=== PATIENT | male | born 1965 | race Caucasian/White ===

== ENCOUNTER 2022-01-31 14:49 | Outpatient (CLI) | payer BC | END 2022-01-31 14:50 | disposition home or self-care (01) | LOC: BICULT 14:49 | PROVIDERS: ATTEND Otolaryngology Plastic Surgery within the Head & Neck | DX: E04.2 Nontoxic multinodular goiter (principal) | CPT/HCPCS: 76536 ==

== ENCOUNTER 2024-04-18 16:00 | Outpatient (CLI) | payer BC | END 2024-04-18 16:01 | disposition home or self-care (01) | LOC: SLEEPLAB 16:00 | PROVIDERS: ATTEND Family Medicine | DX: G47.33 Obstructive sleep apnea (adult) (pediatric) (principal); R53.83 Other fatigue; R06.83 Snoring; I10 Essential (primary) hypertension; N52.9 Male erectile dysfunction, unspecified; E78.5 Hyperlipidemia, unspecified; R73.03 Prediabetes; H93.19 Tinnitus, unspecified ear; F90.9 Attention-deficit hyperactivity disorder, unspecified type | CPT/HCPCS: 95800 ==